=== PATIENT | female | born 1965 | race Caucasian/White ===

== ENCOUNTER 2017-09-21 19:57 | Emergency (ER) | payer OTHER ==
[~2017-09-21] VITALS: Ht 154.9 cm; Wt 122.0 kg
[2017-09-21 20:02] VITALS: Ht 154.9 cm; Wt 122.0 kg
[2017-09-21 22:04] VITALS: BP 124/62
== END 2017-09-21 22:11 | disposition home or self-care (01) ==
LOC: ED 19:57
DX: R05 Cough (principal); R09.81 Nasal congestion; M79.1 Myalgia
CPT/HCPCS: J1885; J7512

== ENCOUNTER 2018-06-21 09:09 | Emergency (ER) | payer OTHER ==
[~2018-06-21] VITALS: Ht 154.9 cm; Wt 119.4 kg
[2018-06-21 09:20] VITALS: Ht 154.9 cm; Wt 119.4 kg
[2018-06-21 11:12] VITALS: BP 130/59
== END 2018-06-21 11:34 | disposition home or self-care (01) ==
LOC: ED 09:09
DX: M54.31 Sciatica, right side (principal)